=== PATIENT | male | born 1965 | race Caucasian/White ===

== ENCOUNTER 2019-10-12 23:00 | Emergency (ER) | payer OTHER ==
[~2019-10-12] VITALS: Ht 177.8 cm; Wt 79.4 kg
[2019-10-12] MEDS ORDERED: TORADOL IV STA (23:11)
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
--- NOTE | 2019-10-12 23:14 | PCM.EKG ---
[facility] Test Date: 2019-10-12 Test Time: 22:58:38 Pat Name: STACEY SHAW Department: [id number] Room: Gender: M Education Paraprofessional: ARTURO : [id number] Requested By: JACKIE GOMEZ Order Number: [id number] Reading MD: Measurements Intervals [place] Rate: 65 P: 65 SD: 176 QRS: 45 QRSD: 100 T: 52 QT: 412 QTc: 429 Interpretive Statements Sinus rhythm Probable left ventricular hypertrophy No previous ECG available for comparison Please click the below link to view image of tracing.
[2019-10-12] MEDS ORDERED: TORADOL ONE (23:15)
[2019-10-12 23:30] VITALS: BP 170/112
[2019-10-12 23:33] LABS: BASOPHIL # 0.1 10^3/uL (0.0-0.1); BASOPHIL % 0.6 % (0.0-0.2); EOSINOPHIL # 0.2 10^3/uL (0.0-0.2); LYMPHOCYTES # 2.7 10^3/uL (1.0-4.8); LYMPHOCYTES % 15.2 % (24.0-44.0); MONOCYTES # 1.5 10^3/uL (0.3-0.8); MONOCYTES % 8.3 % (5.0-12.0); NEUTROPHIL # 13.1 10^3/uL (1.8-7.7); NEUTROPHILS % 74.4 % (41.0-85.0); RED CELL DISTRIBUTION WIDTH 12.3 % (11.5-14.5)
[2019-10-12 23:57] LABS: ALANINE AMINOTRANSFERASE(ML) 45 U/L (12-78); ALKALINE PHOSPHATASE 83 U/L (50-136); ASPARTATE AMINO TRANSFERASE 46 U/L (0-35); CARBON DIOXIDE 27.9 mmol/L (20.0-32); GLUCOSE 91 mg/dL (70-110)
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
== END 2019-10-13 00:59 | disposition home or self-care (01) ==
LOC: ER 23:00
DX: S20.211A Contusion of right front wall of thorax, initial encounter (principal); V49.9XXA Car occupant (driver) (passenger) injured in unspecified traffic accident, initial encounter; Y93.89 Activity, other specified; Y92.488 Other paved roadways as the place of occurrence of the external cause; Y99.8 Other external cause status
CPT/HCPCS: 36415; 71046; 80053; 82550; 82553; 84484; 85025; 93005; 96374; 99285; J1885